=== PATIENT | male | born 2000 | race Hispanic/Latino ===

== ENCOUNTER 2019-11-02 03:25 | Emergency (ER) | payer OTHER, MEDICAID, SELFPAY ==
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
[2019-11-02 03:33] VITALS: BP 130/91; PULSE 124; RESP 20; TEMP 36.3; O2SAT 99
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
[2019-11-02] MEDS: SODIUM CHLORIDE 0.9% 1,000 ML 1000 ML IV (04:09)
[2019-11-02 04:34] LABS: Add Manual Diff / Slide Review NO; Basophils Absolute Auto 0 /uL (0-100); Basophils Percent Auto 0.4 % (0-2); Eosinophils Absolute Auto 100 /uL (0-450); Eosinophils Percent Auto 0.5 % (2-4); Hematocrit 43.8 % (41-53); Hemoglobin 15.2 g/dL (13.5-17.5); Lymphocytes Absolute Auto 3000 /uL (1100-4500); Mean Corpuscular HGB Conc 34.8 % (30-36); Mean Corpuscular Hemoglobin 30.4 PG (26-34); Mean Corpuscular Volume 87.4 fL (80-100); Monocytes Absolute Auto 700 /uL (0-900); Monocytes Percent Auto 6.7 % (3-14); Neutrophils Absolute Auto 6200 /uL (1500-7000); Neutrophils Percent Auto 62.4 % (50-75); Platelet Count 322 X10^3/uL (150-400); Red Blood Cell Count 5.01 X10^6/uL (4.5-5.9); Red Cell Distribution Width 13.2 % (11.6-14.8)
[2019-11-02 04:35] LABS: Alanine Aminotransferase 84 IU/L (<50); Albumin 4.9 g/dL (3.5-5.0); Albumin Globulin Ratio 1.4 (1.0-2.8); Alkaline Phosphatase 106 U/L (38-126); Aspartate Aminotransferase 50 IU/L (17-59); BUN Creatinine Ratio 16.7 (6-22); Bilirubin Total 0.4 mg/dL (0.2-1.3); Blood Urea Nitrogen 10 mg/dL (9-20); Calcium 9.4 mg/dL (8.4-10.2); Carbon Dioxide 21 mmol/L (22-32); Chloride 106 mmol/L (98-107); Estimated Glomerular Filt Rate > 60.0 mL/min (>60); Ethanol (ETOH) 165 mg/dL; Globulin 3.5 g/dL (1.7-4.1); Glucose 125 mg/dL (70-100); HEMOLYSIS 29 (0-50); Lipase 104 U/L (23-300); Potassium 3.9 mmol/L (3.4-5.1); Sodium 144 mmol/L (137-145); Total Protein 8.4 g/dL (6.3-8.2)
[2019-11-02 04:42] LABS: Creatine Kinase 207 U/L (55-170)
[2019-11-02 04:55] LABS: Troponin I < 0.012 ng/mL (0.01-0.034)
[2019-11-02 04:57] LABS: CKMB % Relative Index 0.6 % (1.5-5.0)
[2019-11-02 05:23] VITALS: BP 110/67; PULSE 100; RESP 18; O2SAT 97
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
== END 2019-11-02 05:31 | disposition home or self-care (01) ==
PROVIDERS: Emergency Provider Emergency Medicine; PCP Family Medicine
DX: S06.0X9A Concussion with loss of consciousness of unspecified duration, initial encounter (principal); F10.920 Alcohol use, unspecified with intoxication, uncomplicated; V49.40XA Driver injured in collision with unspecified motor vehicles in traffic accident, initial encounter
CPT/HCPCS: 36415; 70450; 71045; 72170; 80053; 80320; 82550; 82553; 83690; 84484; 85025; 93005; 96360; 99285

== ENCOUNTER 2020-09-27 00:29 | Inpatient (IN) | payer OTHER, MEDICAID, SELFPAY ==
[2020-09-27] VITALS (98 sets, daily range): BP systolic 64–162; BP diastolic 51–92; PULSE 83–131; RESP 0–37; TEMP 36–37.6; O2SAT 45–107; BMI 29.5
[2020-09-27] MEDS: ONDANSETRON 4 MG/2 ML INJ (00:45)
[2020-09-27] MEDS: KETAMINE 500 MG/5 ML INJ 85 MG IV (00:51)
[2020-09-27] MEDS: ROCURONIUM 100 MG/10 ML VIAL 85 MG IV (00:55)
--- NOTE | 2020-09-27 01:17 | DI.RAD.S_ITS ---
PROCEDURE: XR CHEST 1V INDICATIONS: post intubation TECHNIQUE: One view of the chest was acquired. COMPARISON: [facility], CR, XR CHEST 1V, 11/02/2019, 3:40. FINDINGS: Surgical changes and devices: Endotracheal tube in the midtrachea. Enteric tube coursing into the stomach. The side port is at the gastroesophageal junction. Recommend advancing 3 cm. Lungs and pleura: Low lung volumes. Silhouetting at the medial left hemidiaphragm. No pleural effusions or pneumothorax. Mediastinum: Mediastinal contours appear normal. Heart size is normal. Bones and chest wall: No suspicious bony lesions. Gastric gaseous distension. IMPRESSION: 1. Endotracheal tube in the midtrachea. 2. Enteric tube with the side port at the GE junction. Recommend advancing 3 cm for more optimal positioning. 3. Low lung volumes. Silhouetting at the medial left hemidiaphragm. This could be due to consolidation or atelectasis in the left lower lobe. 4. Gastric distension. This report is concordant with the overnight preliminary interpretation. Dictated by: Ha Patel M.D. on 09/27/2020 at 7:39 Approved by: Ha Patel M.D. on 09/27/2020 at 7:43
[2020-09-27] MEDS: fentaNYL 100 MCG/2 ML INJ ×2 (01:30→02:50)
[2020-09-27 01:37] LABS: UR Morphine/Opiate cutoff 300 Negative (Negative); Ur Creatinine Normal (Normal); Ur Specific Gravity Normal (Normal); Urine Amphetamines Negative (Negative); Urine Barbiturates Negative (Negative); Urine Benzodiazepines Negative (Negative); Urine Cocaine Negative (Negative); Urine MDMA Negative (Negative); Urine Methadone Negative (Negative); Urine Methamphetamines Negative (Negative); Urine Oxycodone Negative (Negative); Urine Phencyclidine Negative (Negative); Urine Tetrahydrocannabinol Negative (Negative); Urine Tricyclic Antidepressant Negative (Negative); Urine pH Normal (Normal)
--- NOTE | 2020-09-27 01:43 | ED_ITS ---
HPI - Overdose General Chief Complaint: Toxicology Problem Stated Complaint: ETOH Time Seen by Provider: 09/27/20 00:30 Source: EMS Mode of arrival: EMS Limitations: altered mental status History of Present Illness HPI Narrative: 20-year-old male nonsmoker with noncontributory medical history presents by EMS for evaluation of altered mental status presumably due to consumption of upwards of 2 fifths of whiskey which he consumed tonight. There is no report of other ingestions. EMS was called because he was becoming altered and he was violent and not directable, the decision was made to administer ketamine for safety of patient and paramedics. He was brought into [facility] and soon after his initial evaluation he became apneic and decision was made to secure his airway. There is no report of trauma and no obvious sign of trauma on his physical exam. Mother comes late into the visit and states he told her he planned to drink tonight and that he is terrified of street drugs. She states she found him in his room unresponsive just prior to calling EMS and she was unable to wake him. She states she doesn't know how long he was like that, but he was standing up by the time EMS arrived, but slurring his words like he was drunk. MD complaint: accidental overdose Treatments Prior to Arrival: IV fluids Related Data Home Medications Medication Instructions Recorded Confirmed No Known Home Medications 09/27/20 09/27/20 Allergies Allergy/AdvReac Type Severity Reaction Status Date / Time No Known Allergies Allergy Uncoded 12/27/17 12:51 Review of Systems Review of Systems ROS Unobtainable: Unobtainable due to mental status/LOC Patient History Medical History Alcohol abuse Surgical History (Updated 09/27/20 @ 03:38 by LIYAH Persaud) No significant past surgical history Social History household members: family Smoking Status: Never smoker Smoking Status: Current every day smoker alcohol intake frequency: 0-2 drinks per day Alcohol type: beer Substance Use Type: does not use Exam Narrative Exam Narrative: GENERAL: [20] year old patient appears stated age. Well- nourished, well-developed patient, in mild distress. GCS 3 (Ketamine on board). Guarding airway HEAD: Atraumatic. Normocephalic. EYES: Pupils equal round and reactive. Extraocular motions intact. No scleral icterus. No injection or drainage. ENT: Nose without bleeding, purulent drainage. Throat without erythema, tonsillar hypertrophy or exudate. Airway patent. NECK: Trachea midline. Non tender CARDIOVASCULAR: Tachycardic but regular rhythm without murmurs, gallops, or rubs. RESPIRATORY: Clear to auscultation. Breath sounds equal bilaterally. No wheezes, rales, or rhonchi. GASTROINTESTINAL: Abdomen soft, non-tender, nondistended. EXTREMITIES: No edema or joint tenderness. BACK: Nontender without deformity or crepitance. No flank tenderness. NEURO: Sedated SKIN: No rash or erythema of visible areas Initial Vital Signs Initial Vital Signs: Vital Signs Pulse Rate 120 H 09/27/20 00:32 Blood Pressure 162/75 H 09/27/20 00:32 Pulse Oximetry 74 L 09/27/20 00:32 Procedures Intubation Time out performed: Yes sedative: Ketamine Mg Given: 85 paralytic: Rocuronium Mg Given: 85 Laryngoscope: other (Glydescope) ET Tube Size: 8.5 ET Tube Uncuffed: No Tube Secured Depth (cm): 23 Tube Secured Location: teeth Tube Placement Confirmation: Visualized tube passing through cords, Equal breath sounds bilaterally, No breath sounds over epigastrium, Confirmation by capnometry and Chest Xray Patient Tolerated Procedure: Well Intubation Complications: none Course Orders Ordered: ED Orders 09/27/20 01:17 XR chest 1V Stat 09/27/20 01:25 Urinalysis and Microscopic Stat Urine Drug Screen, Rapid Stat 09/27/20 01:26 Complete Blood Count AUTO DIFF Stat Comprehensive Metabolic Panel Stat Ethanol (ETOH) Stat Hepatic (Liver) Panel Stat Lipase Stat Magnesium Stat 09/27/20 01:45 COVID19 Stat 09/27/20 01:50 Arterial Blood Gas Stat 09/27/20 02:22 Education, smoking cessation ONGOING 09/27/20 02:26 Consult to Discharge Planning Routine 09/27/20 02:27 Consult to Dietitian, Adult Routine 09/27/20 02:30 Arterial Blood Gas Daily 09/27/20 07:00 Basic Metabolic Panel Urgent Complete Blood Count AUTO DIFF Urgent Magnesium Routine Enoxaparin Sodium (Enoxaparin 40 Mg/0.4 Ml Syringe) 40 mg SUBCUT DAILY OFELIA Fentanyl (Fentanyl 100 Mcg/2 Ml Inj) 50 mcg IV Q1H PRN PRN Reason: Pain, Severe (7-10) Last Admin: 09/27/20 05:39 Dose: 50 mcg Documented by: HITESH Sodium Chloride (Normal Saline 0.9%) 1,000 mls @ 125 mls/hr IV CONT [facility] Last Admin: 09/27/20 03:19 Dose: 125 mls/hr Documented by: WALESKA Midazolam HCl 50 mg/ Dextrose 250 mls @ 8.71 mls/hr IV TITRATE [facility]; Protocol Last Titration: 09/27/20 05:30 Dose: 0.02 mg/kg/hr, 8 mls/hr Documented by: Titration: 09/27/20 04:30 Dose: 0.01 mg/kg/hr, 6 mls/hr Documented by: Admin: 09/27/20 03:19 Dose: 0.02 mg/kg/hr, 8.71 mls/hr Documented by: WALESKA Potassium Chloride 40 meq/ (Sodium Chloride) 520 mls @ 130 mls/hr IV NOW ONE Stop: 09/27/20 07:13 Last Admin: 09/27/20 03:45 Dose: 130 mls/hr Documented by: HITESH Cosigned by: WALESKA Folic Acid 1 mg/ Thiamine HCl 100 mg/ Multivitamins 10 ml/Sodium Chloride 1,121 mls @ 125 mls/hr IV NOW [facility] Last Admin: 09/27/20 04:41 Dose: 125 mls/hr Documented by: HITESH Naloxone HCl (Naloxone 0.4 Mg/Ml Vial) 0.2 mg IV Q2MIN PRN PRN Reason: Opiate Reversal Ondansetron HCl (Ondansetron 4 Mg/2 Ml Inj) 4 mg IV Q6HR [facility] Last Admin: 09/27/20 05:41 Dose: 4 mg Documented by: HITESH Discontinued Medications Sodium Chloride (Normal Saline 0.9%) 1,000 mls @ 150 mls/hr IV CONT [facility] Last Admin: 09/27/20 01:53 Dose: 150 mls/hr Documented by: SOL Magnesium Sulfate 0.01 gm/Folic Acid 1 mg/ Thiamine HCl 100 mg/ Multivitamins 10 ml/Sodium Chloride 1,011.22 mls @ 125 mls/hr IV NOW ONE Stop: 09/27/20 11:22 Last Admin: 09/27/20 04:49 Dose: Not Given Documented by: HITESH Influenza Virus Vaccine (Influenza Vaccine 0.5 Ml Syringe) 0.5 ml IM .ONCE ONE Stop: 09/27/20 03:37 Ketamine HCl (Ketamine 500 Mg/5 Ml Inj) 85 mg 1 mg/kg (85 mg) IV NOW ONE Stop: 09/27/20 01:17 Last Admin: 09/27/20 00:51 Dose: 85 mg Documented by: SOL Midazolam HCl (Midazolam 2 Mg/2 Ml Vial) 2 mg IV NOW ONE Stop: 09/27/20 03:01 Last Admin: 09/27/20 03:15 Dose: 2 mg Documented by: WALESKA Pantoprazole Sodium (Pantoprazole 40 Mg Vial) 40 mg IV NOW ONE Stop: 09/27/20 01:44 Last Admin: 09/27/20 01:46 Dose: 40 mg Documented by: SOL Rocuronium [place] (Rocuronium 100 Mg/10 Ml Vial) 85 mg IV NOW ONE Stop: 09/27/20 02:16 Last Admin: 09/27/20 00:55 Dose: 85 mg Documented by: SOL Reevaluation(s) Reevaluation #1: soon after initial exam he becomes unresponsive, apneic, and cyanotic. No improvement with repositioning airway/OPA. LMA placed while RSI kit obtained. He was doing well on LMA for about 20 minutes, but there was certainly no improvement and SpO2 began dropping into the 80s. Decision made to intubate Vital Signs Vital signs: Vital Signs - 8 hr 09/27/20 00:32 09/27/20 00:43 09/27/20 00:55 Pulse Rate 120 H 102 H 120 H Respiratory Rate 0 L Blood Pressure 162/75 H 162/75 H 143/76 H Pulse Oximetry 74 L 45 L 80 L 09/27/20 00:57 09/27/20 01:00 09/27/20 01:05 Pulse Rate 120 H 122 H 119 H Respiratory Rate 10 L 20 Blood Pressure 144/79 H 138/78 Pulse Oximetry 97 98 09/27/20 01:10 09/27/20 01:15 09/27/20 01:20 Pulse Rate 114 H 109 H 107 H Respiratory Rate 20 20 20 Blood Pressure 129/74 126/75 124/79 Pulse Oximetry 98 98 98 09/27/20 01:25 09/27/20 01:30 09/27/20 01:35 Pulse Rate 102 H 98 H 88 Respiratory Rate 20 20 20 Blood Pressure 125/81 124/81 117/75 Pulse Oximetry 99 98 97 09/27/20 01:40 09/27/20 01:45 09/27/20 01:50 Pulse Rate 90 92 H 94 H Respiratory Rate 20 20 20 Blood Pressure 117/64 117/69 121/74 Pulse Oximetry 90 L 99 100 09/27/20 01:55 09/27/20 02:00 09/27/20 02:05 Pulse Rate 92 H 92 H 93 H Respiratory Rate 20 20 20 Blood Pressure 121/78 117/80 113/79 Pulse Oximetry 100 98 98 09/27/20 02:10 09/27/20 02:15 09/27/20 02:20 Pulse Rate 93 H 97 H 99 H Respiratory Rate 20 20 20 Blood Pressure 115/75 118/76 122/81 Pulse Oximetry 99 99 99 MDM - Overdose Lab Data Result diagrams: 09/27/20 01:26 09/27/20 01:26 Labs: Lab Results 09/27/20 09/27/20 09/27/20 Range/Units 01:25 01:25 01:26 WBC 8.1 (4.5-11.0) X10^3/uL RBC 4.84 (4.5-5.9) X10^6/uL Hgb 14.4 (13.5-17.5) g/dL Hct 43.4 (41-53) % MCV 89.8 (80-100) fL MCH 29.8 (26-34) PG MCHC 33.2 (30-36) % RDW 13.4 (11.6-14.8) % Plt Count 223 (150-400) X10^3/uL Neut % (Auto) 54.7 (50-75) % Lymph % (Auto) 37.1 (25-40) % [place] % (Auto) 5.6 (3-14) % Eos % (Auto) 2.1 (2-4) % Baso % (Auto) 0.5 (0-2) % Neut # (Auto) 4400 (1778-5626) /uL Lymph # (Auto) 3000 (9139-1522) /uL [place] # (Auto) 500 (0-900) /uL Eos # (Auto) 200 (0-450) /uL Baso # (Auto) 0 (0-100) /uL ABG pH (7.35-7.45) ABG pCO2 (35-45) mmHg ABG pO2 (80-100) mmHg ABG HCO3 (22-26) mmol/L ABG Total CO2 (21-31) mmol/L ABG O2 Saturation (95-100) % ABG Base Excess (-2-2) mmol/L FiO2 Sodium (137-145) mmol/L Potassium (3.4-5.1) mmol/L Chloride (98-107) mmol/L Carbon Dioxide (22-32) mmol/L BUN (9-20) mg/dL Creatinine (0.66-1.25) mg/dL Estimated GFR (>60) mL/min BUN/Creatinine Ratio (6-22) Glucose (70-100) mg/dL Calcium (8.4-10.2) mg/dL Magnesium (1.6-2.3) mg/dL Total Bilirubin (0.2-1.3) mg/dL Conjugated Bilirubin (0.0-0.3) md/dL Unconjugated Bilirubin (0.0-1.1) mg/dL AST (17-59) IU/L ALT (<50) IU/L Alkaline Phosphatase (38-126) U/L Total Protein (6.3-8.2) g/dL Albumin (3.5-5.0) g/dL Globulin (1.7-4.1) g/dL Albumin/Globulin Ratio (1.0-2.8) Lipase (23-300) U/L Urine Color Yellow Urine Appearance Clear Urine pH 6.5 (4.5-8.0) Ur Specific Collins 1.010 (1.000-1.035) Urine Protein Negative (Negative) Urine Glucose (UA) Negative (Negative) g/dL Urine Ketones Negative (NEGATIVE) Urine Occult Blood Negative (Negative) Urine Nitrate Negative (Negative) Urine Bilirubin Negative (NEGATIVE) Urine Urobilinogen 0.2 (0.2) E.U./dL Ur Leukocyte Esterase Negative (NEGATIVE) Urine RBC None seen (0-5/HPF) Urine WBC None seen (0-5/HPF) Urine Bacteria None seen (None) Ur Culture Indicated? Cult not indicated Micro UA Comment Microscopic normal U Opiates 300ng/mL cut Negative (Negative) Ur Oxycodone Screen Negative (Negative) Urine Methadone Screen Negative (Negative) Ur Barbiturates Screen Negative (Negative) U Tricyclic Antidepress Negative (Negative) Ur Phencyclidine Scrn Negative (Negative) Ur Amphetamines Screen Negative (Negative) U Methamphetamines Scrn Negative (Negative) Ur MDMA Scrn (Ecstasy) Negative (Negative) U Benzodiazepines Scrn Negative (Negative) Urine Cocaine Screen Negative (Negative) U Marijuana (THC) Screen Negative (Negative) Ethyl Alcohol ( - 10) mg/dL SARS-CoV-2 (PCR) (Negative) 09/27/20 09/27/20 09/27/20 Range/Units 01:26 01:45 01:50 WBC (4.5-11.0) X10^3/uL RBC (4.5-5.9) X10^6/uL Hgb (13.5-17.5) g/dL Hct (41-53) % MCV (80-100) fL MCH (26-34) PG MCHC (30-36) % RDW (11.6-14.8) % Plt Count (150-400) X10^3/uL Neut % (Auto) (50-75) % Lymph % (Auto) (25-40) % [place] % (Auto) (3-14) % Eos % (Auto) (2-4) % Baso % (Auto) (0-2) % Neut # (Auto) (6113-5910) /uL Lymph # (Auto) (7106-0302) /uL [place] # (Auto) (0-900) /uL Eos # (Auto) (0-450) /uL Baso # (Auto) (0-100) /uL ABG pH 7.38 (7.35-7.45) ABG pCO2 40.7 (35-45) mmHg ABG pO2 294 H* (80-100) mmHg ABG HCO3 24 (22-26) mmol/L ABG Total CO2 25 (21-31) mmol/L ABG O2 Saturation 100 (95-100) % ABG Base Excess -1.0 (-2-2) mmol/L FiO2 100 Sodium 143 (137-145) mmol/L Potassium 3.1 L (3.4-5.1) mmol/L Chloride 107 (98-107) mmol/L Carbon Dioxide 24 (22-32) mmol/L BUN 12 (9-20) mg/dL Creatinine 0.60 L (0.66-1.25) mg/dL Estimated GFR > 60.0 (>60) mL/min BUN/Creatinine Ratio 20.0 (6-22) Glucose 123 H (70-100) mg/dL Calcium 8.1 L (8.4-10.2) mg/dL Magnesium 2.1 (1.6-2.3) mg/dL Total Bilirubin 0.2 (0.2-1.3) mg/dL Conjugated Bilirubin 0.0 (0.0-0.3) md/dL Unconjugated Bilirubin 0.2 (0.0-1.1) mg/dL AST 42 (17-59) IU/L ALT 49 (<50) IU/L Alkaline Phosphatase 58 (38-126) U/L Total Protein 6.7 (6.3-8.2) g/dL Albumin 4.1 (3.5-5.0) g/dL Globulin 2.6 (1.7-4.1) g/dL Albumin/Globulin Ratio 1.6 (1.0-2.8) Lipase 83 (23-300) U/L Urine Color Urine Appearance Urine pH (4.5-8.0) Ur Specific [place] (1.000-1.035) Urine Protein (Negative) Urine Glucose (UA) (Negative) g/dL Urine Ketones (NEGATIVE) Urine Occult Blood (Negative) Urine Nitrate (Negative) Urine Bilirubin (NEGATIVE) Urine Urobilinogen (0.2) E.U./dL Ur Leukocyte Esterase (NEGATIVE) Urine RBC (0-5/HPF) Urine WBC (0-5/HPF) Urine Bacteria (None) Ur Culture Indicated? Micro UA Comment U Opiates 300ng/mL cut (Negative) Ur Oxycodone Screen (Negative) Urine Methadone Screen (Negative) Ur Barbiturates Screen (Negative) U Tricyclic Antidepress (Negative) Ur Phencyclidine Scrn (Negative) Ur Amphetamines Screen (Negative) U Methamphetamines Scrn (Negative) Ur MDMA Scrn (Ecstasy) (Negative) U Benzodiazepines Scrn (Negative) Urine Cocaine Screen (Negative) U Marijuana (THC) Screen (Negative) Ethyl Alcohol 292 H ( - 10) mg/dL SARS-CoV-2 (PCR) Negative (Negative) Discharge Plan Departure Patient Disposition: Admitted As Inpatient Clinical Impression: Polysubstance abuse Alcoholic intoxication Qualifiers: Complication of substance-induced condition: with unspecified complication Qualified Code(s): F10.929 - Alcohol use, unspecified with intoxication, unspecified Respiratory failure Qualifiers: Chronicity: acute Respiratory failure complication: hypoxia Qualified Code(s): J96.01 - Acute respiratory failure with hypoxia Admit Date/Time: 09/27/20 02:24 Admit Provider: Jose Garrett
[2020-09-27 01:44] LABS: Add Manual Diff / Slide Review NO; Basophils Absolute Auto 0 /uL (0-100); Basophils Percent Auto 0.5 % (0-2); Eosinophils Absolute Auto 200 /uL (0-450); Eosinophils Percent Auto 2.1 % (2-4); Hematocrit 43.4 % (41-53); Hemoglobin 14.4 g/dL (13.5-17.5); Lymphocytes Absolute Auto 3000 /uL (1100-4500); Lymphocytes Percent Auto 37.1 % (25-40); Mean Corpuscular HGB Conc 33.2 % (30-36); Mean Corpuscular Hemoglobin 29.8 PG (26-34); Mean Corpuscular Volume 89.8 fL (80-100); Monocytes Absolute Auto 500 /uL (0-900); Monocytes Percent Auto 5.6 % (3-14); Neutrophils Absolute Auto 4400 /uL (1500-7000); Neutrophils Percent Auto 54.7 % (50-75); Platelet Count 223 X10^3/uL (150-400); Red Blood Cell Count 4.84 X10^6/uL (4.5-5.9); Red Cell Distribution Width 13.4 % (11.6-14.8); White Blood Cell Count 8.1 X10^3/uL (4.5-11.0)
[2020-09-27 01:45] LABS: Appearance Urine UA CLEAR; Bacteria Urine None Seen; Bilirubin Urine UA NEGATIVE (NEGATIVE); Color Urine UA YELLOW; Glucose Urine UA NEGATIVE (Negative); Ketones Urine UA NEGATIVE (NEGATIVE); Leukocyte Esterase Urine UA NEGATIVE (NEGATIVE); Nitrite Urine UA NEGATIVE (Negative); Occult Blood Urine UA NEGATIVE (Negative); Protein Urine UA NEGATIVE (Negative); RBC Urine None Seen (0-5/HPF); Urobilinogen Urine UA 0.2 E.U./dL (0.2); WBC Urine None Seen (0-5/HPF); pH Urine UA 6.5 (4.5-8.0)
[2020-09-27] MEDS: PANTOPRAZOLE 40 MG VIAL IV ×2 (01:46→10:16)
[2020-09-27 01:49] LABS: Alanine Aminotransferase 49 IU/L (<50); Albumin 4.1 g/dL (3.5-5.0); Albumin Globulin Ratio 1.6 (1.0-2.8); Alkaline Phosphatase 58 U/L (38-126); Aspartate Aminotransferase 42 IU/L (17-59); Bilirubin Total 0.2 mg/dL (0.2-1.3); Bilirubin Unconjugated 0.2 mg/dL (0.0-1.1); Blood Urea Nitrogen 12 mg/dL (9-20); Calcium 8.1 mg/dL (8.4-10.2); Carbon Dioxide 24 mmol/L (22-32); Chloride 107 mmol/L (98-107); Estimated Glomerular Filt Rate > 60.0 mL/min (>60); Ethanol (ETOH) 292 mg/dL; Globulin 2.6 g/dL (1.7-4.1); Glucose 123 mg/dL (70-100); HEMOLYSIS < 15 (0-50); Lipase 83 U/L (23-300); Magnesium 2.1 mg/dL (1.6-2.3); Potassium 3.1 mmol/L (3.4-5.1); Sodium 143 mmol/L (137-145); Total Protein 6.7 g/dL (6.3-8.2)
[2020-09-27] MEDS: SODIUM CHLORIDE 0.9% 1,000 ML 150 ML IV (01:53)
[2020-09-27 01:54] LABS: Culture Indicated Urine Cult Not Indicated; Urine Comments Microscopic Normal
--- NOTE | 2020-09-27 01:58 | PC.NURSE ---
Pt brought in by medics. Pt on their gurney was pink in color, breathing with steady breathes, Spo2 per medics was at 98% on RA. Transferred pt to ED [facility]. While connecting him to the monitor, Spo2 at 77% and dropping. Placed on non rebreather at 15L. Spo2 continued to drop and pt turning blue and not breathing. Provider called into room and started bagging with a BVM. OPA in place. RT called and present at bedside. Suction at bedside and suctioned airway. while preparing to intubate provider placed an LMA and placed on vent. Spo2 increased to 93% on 100% fio2. Oxygen began to drop again on LMA. Provider intubated with 8.5 tube, 23cm at teeth. breath sounds and equal chest rise were observed and heard. Tube secured. Maintaining Oxygen saturations at 50% fio2 at 99%.
[2020-09-27 02:03] LABS: COVID19 -Nasal RAPID Negative (Negative)
[2020-09-27 02:04] LABS: HCO3 ABG 24 mmol/L (22-26); PCO2 ABG 40.7 mmHg (35-45); PO2 ABG 294 mmHg (80-100); pH ABG 7.38 (7.35-7.45)
[2020-09-27 02:05] LABS: Fractionated Inspired Oxygen 100; Oxygen Saturation ABG 100 % (95-100); TCO2 ABG 25 mmol/L (21-31)
[2020-09-27] MEDS: propofoL 200 MG/20 ML VIAL IV (02:25)
[2020-09-27] MEDS: MIDAZOLAM 2 MG/2 ML VIAL IV ×2 (03:15→07:13)
[2020-09-27] MEDS: SODIUM CHLORIDE 0.9% 1,000 ML 125 ML IV ×3 (03:19→22:39)
[2020-09-27] MEDS: MIDAZOLAM 50 MG in DEXTROSE 5% IN WATER 240 ML 8.71 ML IV (03:19)
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
[2020-09-27] MEDS: POTASSIUM CHLORIDE 40 MEQ in SODIUM CHLORIDE 0.9% 500 ML 130 ML IV (03:45)
[2020-09-27] MEDS: MULTIVITAMIN IV (04:41)
[2020-09-27] MEDS: THIAMINE IV (04:41)
[2020-09-27] MEDS: FOLIC ACID IV (04:41)
[2020-09-27] MEDS: SODIUM CHLORIDE IV (04:41)
[2020-09-27 04:46] LABS: Fractionated Inspired Oxygen 30; HCO3 ABG 21 mmol/L (22-26); Oxygen Saturation ABG 99 % (95-100); PCO2 ABG 38.1 mmHg (35-45); PO2 ABG 123 mmHg (80-100); TCO2 ABG 23 mmol/L (21-31); pH ABG 7.36 (7.35-7.45)
--- NOTE | 2020-09-27 04:57 | PC.ADMIT ---
[address] [facility] [address] Admission Note:Pt arrived to unit via gurney without issues. Mother at bedside and providing hx for patient. Pt sedated and intubated. Administered versed push while waiting for gtt to arrive per Gerry PELLETIER order. Pitts cath placed per VO Gerry PELLETIER. Pt sedated but responsive to painful touch. Versed gtt started as ordered, checked with SANGEETA Gerardo. Pt showing no signs of pain. RT at bedside. Vent settings at 5 peep. 16 RR. 30 FI02. TV 470 The patient,Scott Burkett,20 y/o, was given written information regarding hospital policies, unit procedures and contact persons. Patient's smoking status: Never smoker. Vital Signs - 8 hr 09/27/20 00:32 09/27/20 00:43 09/27/20 00:55 Temperature Pulse Rate 120 H 102 H 120 H Respiratory Rate 0 L Blood Pressure 162/75 H 162/75 H 143/76 H Pulse Oximetry 74 L 45 L 80 L 09/27/20 00:57 09/27/20 01:00 09/27/20 01:05 Temperature Pulse Rate 120 H 122 H 119 H Respiratory Rate 10 L 20 Blood Pressure 144/79 H 138/78 Pulse Oximetry 97 98 09/27/20 01:10 09/27/20 01:15 09/27/20 01:20 Temperature Pulse Rate 114 H 109 H 107 H Respiratory Rate 20 20 20 Blood Pressure 129/74 126/75 124/79 Pulse Oximetry 98 98 98 09/27/20 01:25 09/27/20 01:30 09/27/20 01:35 Temperature Pulse Rate 102 H 98 H 88 Respiratory Rate 20 20 20 Blood Pressure 125/81 124/81 117/75 Pulse Oximetry 99 98 97 09/27/20 01:40 09/27/20 01:45 09/27/20 01:50 Temperature Pulse Rate 90 92 H 94 H Respiratory Rate 20 20 20 Blood Pressure 117/64 117/69 121/74 Pulse Oximetry 90 L 99 100 09/27/20 01:55 09/27/20 02:00 09/27/20 02:05 Temperature Pulse Rate 92 H 92 H 93 H Respiratory Rate 20 20 20 Blood Pressure 121/78 117/80 113/79 Pulse Oximetry 100 98 98 09/27/20 02:10 09/27/20 02:15 09/27/20 02:20 Temperature Pulse Rate 93 H 97 H 99 H Respiratory Rate 20 20 20 Blood Pressure 115/75 118/76 122/81 Pulse Oximetry 99 99 99 09/27/20 02:25 09/27/20 02:30 09/27/20 02:35 Temperature 96.8 F L Pulse Rate 97 H 96 H 95 H Respiratory Rate 20 20 20 Blood Pressure 122/84 115/72 115/69 Pulse Oximetry 99 98 99 09/27/20 02:40 09/27/20 02:45 09/27/20 02:50 Temperature Pulse Rate 95 H 83 85 Respiratory Rate 20 20 20 Blood Pressure 125/87 112/74 116/76 Pulse Oximetry 100 99 100 09/27/20 02:55 09/27/20 03:00 09/27/20 03:22 Temperature Pulse Rate 99 H 92 H 98 H Respiratory Rate 17 16 Blood Pressure 123/86 124/88 132/86 Pulse Oximetry 100 99 09/27/20 03:53 09/27/20 04:00 09/27/20 04:24 Temperature Pulse Rate 93 H 96 H 93 H Respiratory Rate 16 16 16 Blood Pressure 114/75 114/75 Pulse Oximetry 100 100 100 09/27/20 04:30 09/27/20 04:47 Temperature 97.4 F L Pulse Rate 100 H Respiratory Rate 16 Blood Pressure 115/77 Pulse Oximetry 100
[2020-09-27] MEDS: fentaNYL 100 MCG/2 ML INJ 50 MCG IV ×5 (05:39→13:39)
[2020-09-27] MEDS: ONDANSETRON 4 MG/2 ML INJ IV ×4 (05:41→23:49)
--- NOTE | 2020-09-27 05:50 | PC.NURSE ---
Addendum entered by Marcela Riley R.N. 09/27/20 07:21: Pt continues to try to pull at lines and fight vent. 2mg versed ordered by Gerry PELLETIER. Pt now resting. [facility] Addendum entered by Marcela Riley R.N. 09/27/20 06:57: Gtt decreased to 6ml/hr due to patient non-responsive to painful touch. 0645 - Pt awake again trying to pull at vent and lines. Gtt increased again to 8ml/hr and another dose of fentanyl given. HR upto 130-140s. Pt now resting but arousable. Original Note: Pt awake fighting vent and trying pull at lines. Versed gtt increased to 8ml/hr. Pt continues to fight vent. Fentanyl PRN given as ordered. Gerry PELLETIER aware. Pt now resting comfortably in bed, awakens to stimuli. [facility]
--- NOTE | 2020-09-27 08:00 | DI.RAD.S_ITS ---
PROCEDURE: XR CHEST 1V INDICATIONS: Intubation TECHNIQUE: One view of the chest was acquired. COMPARISON: [facility], , XR CHEST 1V, 09/27/2020, 1:31. [facility], CR, XR CHEST 1V, 11/02/2019, 3:40. FINDINGS: Suboptimal examination due to x-ray penetration. Surgical changes and devices: Endotracheal tube in the midtrachea. Enteric tube is not well seen. Lungs and pleura: No obvious new airspace opacity. Low lung volumes. No obvious pleural effusions or pneumothorax. Mediastinum: Mediastinal contours appear normal. Heart size appears unchanged. Bones and chest wall: No suspicious bony lesions. Overlying soft tissues appear unremarkable. IMPRESSION: Suboptimal evaluation due to x-ray penetration. Endotracheal tube appears to be within the midtrachea. Enteric tube is not well seen. Consider repeat examination when clinically feasible. Dictated by: Ha Patel M.D. on 09/27/2020 at 13:24 Approved by: Ha Patel M.D. on 09/27/2020 at 13:26
[2020-09-27 08:35] LABS: Add Manual Diff / Slide Review NO; Basophils Absolute Auto 0 /uL (0-100); Basophils Percent Auto 0.2 % (0-2); Eosinophils Absolute Auto 0 /uL (0-450); Eosinophils Percent Auto 0.1 % (2-4); Hematocrit 43.9 % (41-53); Hemoglobin 14.8 g/dL (13.5-17.5); Lymphocytes Absolute Auto 1900 /uL (1100-4500); Mean Corpuscular HGB Conc 33.7 % (30-36); Mean Corpuscular Hemoglobin 30.1 PG (26-34); Mean Corpuscular Volume 89.4 fL (80-100); Monocytes Absolute Auto 500 /uL (0-900); Monocytes Percent Auto 3.4 % (3-14); Neutrophils Absolute Auto 11900 /uL (1500-7000); Neutrophils Percent Auto 83.3 % (50-75); Platelet Count 223 X10^3/uL (150-400); Red Blood Cell Count 4.91 X10^6/uL (4.5-5.9); Red Cell Distribution Width 13.3 % (11.6-14.8); White Blood Cell Count 14.3 X10^3/uL (4.5-11.0)
[2020-09-27 08:47] LABS: BUN Creatinine Ratio 15.9 (6-22); Blood Urea Nitrogen 10 mg/dL (9-20); Calcium 8.2 mg/dL (8.4-10.2); Carbon Dioxide 25 mmol/L (22-32); Chloride 108 mmol/L (98-107); Estimated Glomerular Filt Rate > 60.0 mL/min (>60); Glucose 125 mg/dL (70-100); HEMOLYSIS < 15 (0-50); Potassium 4.1 mmol/L (3.4-5.1); Sodium 141 mmol/L (137-145)
[2020-09-27] MEDS: ENOXAPARIN 40 MG/0.4 ML SYRINGE SUBCUT (10:16)
--- NOTE | 2020-09-27 13:30 | CM.DANOTE ---
DCP brief assessment: EMR reviewed: Patient is a 20 yr old male who was brought into the ED for altered mental status and Alcohol OD. Patient became very apneic in ED and was placed on vent. patients PCP is Dr. Lazcano. patient not able to meet with CM at this time due to being on a vent and sedated. CM spoke with Dr. Nicole today during AM rounds and he stated patient will attempt to be weaned off of vent tomorrow if less agitated and VS are more stable. According to Patients mother patient drinks daily and usually to excess. Unknown how much patient drank last night but was found unresponsive by his mother who called EMS. When EMS arrived patient was slurring his words, agitated and becoming violent. Patient will need a full assessment when able to participate and a BUTCHER SUPERVISOR consult at that time. I: [place] and Medicaid Plan: undetermined at this time. patient is on Vent and unable to assist with DC plan. BUTCHER SUPERVISOR will follow up with patient when patient is able to participate in assessment. May Baptiste RN Discharge Planning/Care Management Discharge Assessment Start: 09/27/20 12:57 Freq: Status: Active Protocol: Document 09/27/20 12:58 HS (Rec: 09/27/20 13:30 HS [id number]) Discharge Planning Assessment Assigned Power Plant Operator May Baptiste RN DPOA/Assigned Designee Name Mey Burkett (mother) Contact Information [phone] Advance Directives? No History Provided By Parents,Medical Record Has Patient been admitted in last 30 No days? Prior Living Arrangements House Household Members family Comment patient lives in his mothers house Type of transporation used prior to Drives own vehicle admit Independent with ADL's Yes Is patient alert and oriented? No: Patient currently on VENT Caregiver for Another No Barriers to Discharge Yes Comment Paitent currently On VENT unable to determine D/C needs until off of Vent and more awake Whiteboard Updated in Patient Room with Yes name and ext. # of Power Plant Operator Review Status In Process Next Review Type Continued Stay Review
--- NOTE | 2020-09-27 13:46 | PC.NURSE ---
Addendum entered by Madiha Neri R.N. 09/27/20 15:17: Started Fentanyl gtt and monitoring BP with decreased Versed. Report to Morelia RUTHERFORD Original Note: Am shift Pt is lightly sedated. Vent settings 25% Fi02 TV 475 Peep 5 Rate 16. Able to follow commands, but patient remains impulsive, with attempts at removing ETT. Soft wrist restraints in place. CMS + ROM assessed and KENO ATTENDANT brisk. PIV x2. Mother at bedside and updated with POC changes throughout shift. CXR obtained @ 1400 portable, after Pt notably diaphoretic and T max 99.6. Concern for aspiration while in ED, after emesis. Pt needing versed titrated up frequently this shift, currently infusing at 0.038mg/kg/hr. 15mls/hr and Fentanyl gtt orders obtained, as IVP working but not lasting long. Pt reports pain to throat while awake. Paper and pen at bedside for communication. Agitation noted with in ability to extubate this shift. Get it out written to paper. Reassured Pt of POC and safety measures to follow. Requiring 1:1 Rn assist for much of AM.
[2020-09-27] MEDS: fentaNYL 1,000 MCG in DEXTROSE 5% IN WATER 230 ML 14.525 ML IV (14:57)
[2020-09-27] MEDS: LORazepam 2 MG/ML INJ IV (16:26)
--- NOTE | 2020-09-27 17:00 | DI.RAD.S_ITS ---
PROCEDURE: XR CHEST FOR PICC 1V INDICATIONS: PICC line placement TECHNIQUE: One view of the chest was acquired. COMPARISON: [facility], CR, XR CHEST 1V, 09/27/2020, 13:37. [facility], CR, XR CHEST 1V, 09/27/2020, 1:31. FINDINGS: Patient is not upright. Surgical changes and devices: Endotracheal tube in the midtrachea. Enteric tube coursing into the stomach. The side port is near the gastroesophageal junction. This could be advanced at least 3 cm for more optimal positioning. Left-sided PICC with the catheter tip at the lower 3rd of the SVC in satisfactory position. Lungs and pleura: Lungs appear clear. No pleural effusions or pneumothorax. Mediastinum: Mediastinal contours appear normal. Heart size is normal. Bones and chest wall: No suspicious bony lesions. Overlying soft tissues appear unremarkable. IMPRESSION: 1. Left-sided PICC with the tip at the lower 3rd of the SVC in satisfactory position. 2. Enteric tube in the proximal stomach. Consider advancing 3 cm for more optimal positioning. 3. Endotracheal tube in the midtrachea. 4. No airspace opacity identified. Dictated by: Ha Patel M.D. on 09/27/2020 at 17:16 Approved by: Ha Patel M.D. on 09/27/2020 at 17:17
[2020-09-27] MEDS: propofoL 200 MG/20 ML VIAL 85 MG IV (18:29)
[2020-09-27] MEDS: propofoL 1,000 MG/100 ML VIAL 2.49 MG IV (18:30)
--- NOTE | 2020-09-27 19:46 | P.PN_ITS ---
Subjective Subjective Date Patient Seen: 09/27/20 Time Patient Seen: 19:46 Interval history: Critical care update note: Tony Burkett is a 20-year-old male admitted overnight for acute alcohol intoxication. His alcohol level on admission was 292. He has been drinking for a few years. He was initially intubated in the emergency room. He remained intubated this morning. Attempted a sedation trial, and the patient was extremely combative, tachycardic, and had increasing secretions in his ET tube throughout the day. I suspect that he is most likely developing a component of alcohol withdrawal at this time. he was initially on sedation with Versed, added fentanyl but the patient remained predominantly awake. Decision was made to keep the patient intubated given his persistent tachycardia, presumed alcohol withdrawal, and possible aspiration. Ultimately Versed was changed to propofol, with continued fentanyl. This has improved his sedation somewhat but will continue to monitor. PICC line was placed given mild hypotension As he is requiring a lot of medication to keep him sedated for possible pressure support. I spent 35 minutes providing critical care management this patient over the course of today. This excludes time spent in performing separately billed procedures. Exam Vital Signs (past 8 hours): - 09/27/20 12:00 09/27/20 12:30 09/27/20 13:00 Temperature 98.8 F 99.3 F Pulse Rate 113 H 108 H 109 H Respiratory Rate 27 H 16 12 Blood Pressure 107/56 L 96/53 L 94/55 L Pulse Oximetry 91 91 91 09/27/20 13:20 09/27/20 13:30 09/27/20 14:00 Temperature 99.4 F Pulse Rate 117 H 110 H 104 H Respiratory Rate 18 16 16 Blood Pressure 94/55 L 93/51 L 96/52 L Pulse Oximetry 95 92 92 09/27/20 14:30 09/27/20 15:00 09/27/20 15:30 Temperature 98.6 F Pulse Rate 111 H 113 H 114 H Respiratory Rate 16 13 6 L Blood Pressure 98/57 L 105/61 98/56 L Pulse Oximetry 93 97 96 09/27/20 16:00 09/27/20 16:30 09/27/20 17:00 Temperature 97.9 F 98.1 F Pulse Rate 109 H 109 H 108 H Respiratory Rate 0 L 5 L 17 Blood Pressure 104/58 L 103/52 L Pulse Oximetry 92 92 91 09/27/20 17:30 09/27/20 17:31 09/27/20 17:37 Temperature Pulse Rate 113 H 109 H 108 H Respiratory Rate 16 16 16 Blood Pressure 117/59 L 112/58 L Pulse Oximetry 95 93 91 09/27/20 18:00 09/27/20 18:30 09/27/20 18:39 Temperature 99.7 F H Pulse Rate 109 H 109 H 118 H Respiratory Rate 16 16 16 Blood Pressure 107/63 101/56 L Pulse Oximetry 93 91 95 09/27/20 18:40 09/27/20 18:50 09/27/20 19:00 Temperature 98.6 F Pulse Rate 113 H 109 H 109 H Respiratory Rate 16 16 16 Blood Pressure 95/54 L 94/55 L 97/56 L Pulse Oximetry 93 91 91 09/27/20 19:10 09/27/20 19:20 09/27/20 19:30 Temperature Pulse Rate 106 H 111 H 112 H Respiratory Rate 16 16 16 Blood Pressure 100/56 L 120/74 109/62 Pulse Oximetry 92 98 93 Fraction of Inspired Oxygen 0.25 Oxygen Delivery Method Mechanical Ventilation Oxygen Flow Rate 30 Narrative Exam Narrative: GENERAL APPEARANCE: well developed, obese young male, intubated on ventilatory support. When alert reaching to pull out the tube HEENT: Nontraumatic, PERRLA sluggish, dysconjugate gaze, conjunctiva clear, sclera is anicteric, 8.5 ET tube secured at 23 cm at the teeth, mucous membranes are moist and pink NECK/THYROID: neck supple, no muscular spasms, no step-offs, no JVD, no thyromegaly, trachea midline. LYMPH NODES: no cervical or supraclavicular lymphadenopathy. SKIN: [employer], warm and dry, no visible lesions. HEART: Regular rhythm, tachycardia, S1-S2, no murmur, no rubs or gallops, brisk capillary refill, no edema LUNGS: Ventilator supported respirations, Vt 450, RR 20, Fio2 40%, breath sounds present bilaterally with central coarseness clear with suctioning, no crackles or wheezing, no cough present. CHEST: Symmetrical movement. ABDOMEN: Soft, no distention, dull to percussion, no organomegaly, active bowel tones. EXTREMITIES: no deformities or joint effusions. NEUROLOGIC: On significant sedation patient is still alert, follows commands, moves all extremities equally, attempting to remove ET tube, and frequently agitated. Objective Labs Result Diagrams: 09/27/20 08:30 09/27/20 08:30 Labs: Laboratory Results - last 24 hr 09/27/20 09/27/20 09/27/20 01:25 01:25 01:26 WBC 8.1 RBC 4.84 Hgb 14.4 Hct 43.4 MCV 89.8 MCH 29.8 MCHC 33.2 RDW 13.4 Plt Count 223 Neut % (Auto) 54.7 Lymph % (Auto) 37.1 [place] % (Auto) 5.6 Eos % (Auto) 2.1 Baso % (Auto) 0.5 Neut # (Auto) 4400 Lymph # (Auto) 3000 [place] # (Auto) 500 Eos # (Auto) 200 Baso # (Auto) 0 ABG pH ABG pCO2 ABG pO2 ABG HCO3 ABG Total CO2 ABG O2 Saturation ABG Base Excess FiO2 Sodium Potassium Chloride Carbon Dioxide BUN Creatinine Estimated GFR BUN/Creatinine Ratio Glucose Calcium Magnesium Total Bilirubin Conjugated Bilirubin Unconjugated Bilirubin AST ALT Alkaline Phosphatase Total Protein Albumin Globulin Albumin/Globulin Ratio Lipase Urine Color Yellow Urine Appearance Clear Urine pH 6.5 Ur Specific [place] 1.010 Urine Protein Negative Urine Glucose (UA) Negative Urine Ketones Negative Urine Occult Blood Negative Urine Nitrate Negative Urine Bilirubin Negative Urine Urobilinogen 0.2 Ur Leukocyte Esterase Negative Urine RBC None seen Urine WBC None seen Urine Bacteria None seen Ur Culture Indicated? Cult not indicated Micro UA Comment Microscopic normal Nasal Screen MRSA (PCR) U Opiates 300ng/mL cut Negative Ur Oxycodone Screen Negative Urine Methadone Screen Negative Ur Barbiturates Screen Negative U Tricyclic Antidepress Negative Ur Phencyclidine Scrn Negative Ur Amphetamines Screen Negative U Methamphetamines Scrn Negative Ur MDMA Scrn (Ecstasy) Negative U Benzodiazepines Scrn Negative Urine Cocaine Screen Negative U Marijuana (THC) Screen Negative Ethyl Alcohol SARS-CoV-2 (PCR) 09/27/20 09/27/20 09/27/20 01:26 01:45 01:50 WBC RBC Hgb Hct MCV MCH MCHC RDW Plt Count Neut % (Auto) Lymph % (Auto) [place] % (Auto) Eos % (Auto) Baso % (Auto) Neut # (Auto) Lymph # (Auto) [place] # (Auto) Eos # (Auto) Baso # (Auto) ABG pH 7.38 ABG pCO2 40.7 ABG pO2 294 H* ABG HCO3 24 ABG Total CO2 25 ABG O2 Saturation 100 ABG Base Excess -1.0 FiO2 100 Sodium 143 Potassium 3.1 L Chloride 107 Carbon Dioxide 24 BUN 12 Creatinine 0.60 L Estimated GFR > 60.0 BUN/Creatinine Ratio 20.0 Glucose 123 H Calcium 8.1 L Magnesium 2.1 Total Bilirubin 0.2 Conjugated Bilirubin 0.0 Unconjugated Bilirubin 0.2 AST 42 ALT 49 Alkaline Phosphatase 58 Total Protein 6.7 Albumin 4.1 Globulin 2.6 Albumin/Globulin Ratio 1.6 Lipase 83 Urine Color Urine Appearance Urine pH Ur Specific [place] Urine Protein Urine Glucose (UA) Urine Ketones Urine Occult Blood Urine Nitrate Urine Bilirubin Urine Urobilinogen Ur Leukocyte Esterase Urine RBC Urine WBC Urine Bacteria Ur Culture Indicated? Micro UA Comment Nasal Screen MRSA (PCR) U Opiates 300ng/mL cut Ur Oxycodone Screen Urine Methadone Screen Ur Barbiturates Screen U Tricyclic Antidepress Ur Phencyclidine Scrn Ur Amphetamines Screen U Methamphetamines Scrn Ur MDMA Scrn (Ecstasy) U Benzodiazepines Scrn Urine Cocaine Screen U Marijuana (THC) Screen Ethyl Alcohol 292 H SARS-CoV-2 (PCR) Negative 09/27/20 09/27/20 09/27/20 04:00 04:08 08:30 WBC RBC Hgb Hct MCV MCH MCHC RDW Plt Count Neut % (Auto) Lymph % (Auto) [place] % (Auto) Eos % (Auto) Baso % (Auto) Neut # (Auto) Lymph # (Auto) [place] # (Auto) Eos # (Auto) Baso # (Auto) ABG pH 7.36 ABG pCO2 38.1 ABG pO2 123 H ABG HCO3 21 L ABG Total CO2 23 ABG O2 Saturation 99 ABG Base Excess -4.0 L FiO2 30 Sodium Potassium Chloride Carbon Dioxide BUN Creatinine Estimated GFR BUN/Creatinine Ratio Glucose Calcium Magnesium 2.0 Total Bilirubin Conjugated Bilirubin Unconjugated Bilirubin AST ALT Alkaline Phosphatase Total Protein Albumin Globulin Albumin/Globulin Ratio Lipase Urine Color Urine Appearance Urine pH Ur Specific [place] Urine Protein Urine Glucose (UA) Urine Ketones Urine Occult Blood Urine Nitrate Urine Bilirubin Urine Urobilinogen Ur Leukocyte Esterase Urine RBC Urine WBC Urine Bacteria Ur Culture Indicated? Micro UA Comment Nasal Screen MRSA (PCR) Negative for mrsa U Opiates 300ng/mL cut Ur Oxycodone Screen Urine Methadone Screen Ur Barbiturates Screen U Tricyclic Antidepress Ur Phencyclidine Scrn Ur Amphetamines Screen U Methamphetamines Scrn Ur MDMA Scrn (Ecstasy) U Benzodiazepines Scrn Urine Cocaine Screen U Marijuana (THC) Screen Ethyl Alcohol SARS-CoV-2 (PCR) 09/27/20 09/27/20 08:30 08:30 WBC 14.3 H D RBC 4.91 Hgb 14.8 Hct 43.9 MCV 89.4 MCH 30.1 MCHC 33.7 RDW 13.3 Plt Count 223 Neut % (Auto) 83.3 H D Lymph % (Auto) 13.0 L D [place] % (Auto) 3.4 Eos % (Auto) 0.1 L Baso % (Auto) 0.2 Neut # (Auto) 06816 H Lymph # (Auto) 1900 [place] # (Auto) 500 Eos # (Auto) 0 Baso # (Auto) 0 ABG pH ABG pCO2 ABG pO2 ABG HCO3 ABG Total CO2 ABG O2 Saturation ABG Base Excess FiO2 Sodium 141 Potassium 4.1 Chloride 108 H Carbon Dioxide 25 BUN 10 Creatinine 0.63 L Estimated GFR > 60.0 BUN/Creatinine Ratio 15.9 Glucose 125 H Calcium 8.2 L Magnesium Total Bilirubin Conjugated Bilirubin Unconjugated Bilirubin AST ALT Alkaline Phosphatase Total Protein Albumin Globulin Albumin/Globulin Ratio Lipase Urine Color Urine Appearance Urine pH Ur Specific [place] Urine Protein Urine Glucose (UA) Urine Ketones Urine Occult Blood Urine Nitrate Urine Bilirubin Urine Urobilinogen Ur Leukocyte Esterase Urine RBC Urine WBC Urine Bacteria Ur Culture Indicated? Micro UA Comment Nasal Screen MRSA (PCR) U Opiates 300ng/mL cut Ur Oxycodone Screen Urine Methadone Screen Ur Barbiturates Screen U Tricyclic Antidepress Ur Phencyclidine Scrn Ur Amphetamines Screen U Methamphetamines Scrn Ur MDMA Scrn (Ecstasy) U Benzodiazepines Scrn Urine Cocaine Screen U Marijuana (THC) Screen Ethyl Alcohol SARS-CoV-2 (PCR) PFSH Medical History Alcohol abuse Surgical History (Updated 09/27/20 @ 03:38 by LIYAH Persaud) No significant past surgical history Social History household members: family Smoking Status: Never smoker Quality VTE Deep Vein Thrombosis/Pulmonary Embolism Present on Admission: No
--- NOTE | 2020-09-27 21:10 | PC.NURSE ---
Addendum entered by Morelia Richter R.N. 09/27/20 22:47: Current RASS score corrected not +4 but -4, pt resting comfortably, rouses to stimulation, quickly falls back to sleep. Mother at bedside, no further needs at this time, will continue to treat and monitor until report is given to oncoming [facility] shift nurse. Original Note: Evening shift note: Pt lightly sedated at the beginning of shift, was on Fentaynl and Versed for sedation with intubation and pt able to interact with staff and family, Able to follow commands, repeated attempts at removing ETT. Soft wrist restraints in place as ordered, CMS + ROM assessed. PIV x2 and PICC line placed to CARY. Tmax 99.6, concerns for possible aspiration after emesis. Current Vent settings 25% SIMV 16/5 with tidal vol. of 470; Propofol at 24.9 mg/hr- 50mcg/kg/hr; Fentanyl at 20.75mL/hr- 1mcg/kg/hr; Versed discontinued and Ativan 1mg prn Q4 hour. Mother at bedside, seems that pt is currently sedated, RASS +4. Bed low and locked, call light within reach. will continue to monitor.
[2020-09-27] MEDS: propofoL 1,000 MG/100 ML VIAL 24.9 MG IV (23:12)
[2020-09-28] VITALS (32 sets, daily range): BP systolic 111–141; BP diastolic 67–97; PULSE 101–125; RESP 0–24; TEMP 36.4–37.3; O2SAT 96–99
[2020-09-28] MEDS: propofoL 1,000 MG/100 ML VIAL 19.92 MG IV ×2 (03:17→07:46)
[2020-09-28] MEDS: fentaNYL 1,000 MCG in DEXTROSE 5% IN WATER 230 ML 20.75 ML IV (03:32)
[2020-09-28] MEDS: LORazepam 2 MG/ML INJ 1 MG IV (04:20)
--- NOTE | 2020-09-28 04:32 | PC.NURSE ---
Addendum entered by Marcela Riley R.N. 09/28/20 06:21: Pt moderately sedated. Mey pt mother at bedside. Pitts intact and draining lian urine. OG tube intact draining dark brown/red. Gerry PELLETIER notified and orders received to start pt on prophylactic. Original Note: Pt agitated, fidgeting in bed, alert, writing on paper asking if he is dying. HR increased to 120s. Propafol increased to 50 mcg/kg/hr with no change. 1mg Ativan PRN given as ordered. Pt now resting in bed. RASS Score of -3. WCTM
[2020-09-28 05:54] LABS: Add Manual Diff / Slide Review NO; Basophils Absolute Auto 0 /uL (0-100); Basophils Percent Auto 0.2 % (0-2); Eosinophils Absolute Auto 100 /uL (0-450); Eosinophils Percent Auto 0.6 % (2-4); Hemoglobin 13.3 g/dL (13.5-17.5); Lymphocytes Absolute Auto 2600 /uL (1100-4500); Lymphocytes Percent Auto 24.6 % (25-40); Mean Corpuscular Hemoglobin 30.2 PG (26-34); Mean Corpuscular Volume 88.9 fL (80-100); Monocytes Absolute Auto 1000 /uL (0-900); Neutrophils Absolute Auto 6700 /uL (1500-7000); Neutrophils Percent Auto 64.6 % (50-75); Platelet Count 207 X10^3/uL (150-400); Red Blood Cell Count 4.39 X10^6/uL (4.5-5.9); Red Cell Distribution Width 13.2 % (11.6-14.8); White Blood Cell Count 10.4 X10^3/uL (4.5-11.0)
[2020-09-28] MEDS: ONDANSETRON 4 MG/2 ML INJ IV ×2 (05:55→23:18)
[2020-09-28] MEDS: SODIUM CHLORIDE 0.9% 1,000 ML 125 ML IV ×3 (05:57→22:17)
[2020-09-28 06:15] LABS: Alanine Aminotransferase 36 IU/L (<50); Albumin 3.6 g/dL (3.5-5.0); Albumin Globulin Ratio 1.3 (1.0-2.8); Alkaline Phosphatase 62 U/L (38-126); Aspartate Aminotransferase 36 IU/L (17-59); BUN Creatinine Ratio 14.7 (6-22); Bilirubin Total 0.8 mg/dL (0.2-1.3); Bilirubin Unconjugated 0.8 mg/dL (0.0-1.1); Blood Urea Nitrogen 11 mg/dL (9-20); Calcium 8.6 mg/dL (8.4-10.2); Carbon Dioxide 27 mmol/L (22-32); Chloride 106 mmol/L (98-107); Estimated Glomerular Filt Rate > 60.0 mL/min (>60); Globulin 2.7 g/dL (1.7-4.1); Glucose 93 mg/dL (70-100); HEMOLYSIS < 15 (0-50); Magnesium 1.8 mg/dL (1.6-2.3); Potassium 3.4 mmol/L (3.4-5.1); Sodium 135 mmol/L (137-145); Total Protein 6.3 g/dL (6.3-8.2)
[2020-09-28] MEDS: PANTOPRAZOLE 40 MG VIAL IV (07:46)
[2020-09-28] MEDS: ENOXAPARIN 40 MG/0.4 ML SYRINGE SUBCUT (07:48)
[2020-09-28] MEDS: ACETAMINOPHEN 325 MG TABLET 650 MG PO ×3 (11:51→20:56)
--- NOTE | 2020-09-28 14:11 | PM.PN.1 ---
Subjective Subjective Date Patient Seen: 09/28/20 Interval history: Patient is 20-year-old male admitted with acute intoxication and unresponsiveness and was intubated to protect his airway. There was witnessed likely aspiration. He was kept on propofol and Ativan as needed overnight. We were able to extubate him this morning. He remains stable post extubation without respiratory distress. He complains of his throat hurting and trouble swallowing. Exam Vital Signs (past 8 hours): - 09/28/20 07:00 09/28/20 07:55 09/28/20 08:00 Temperature 99.1 F Pulse Rate 109 H 111 H Respiratory Rate 16 15 Blood Pressure 127/79 139/87 Pulse Oximetry 96 98 99 09/28/20 08:31 09/28/20 10:00 09/28/20 12:00 Temperature 98.9 F Pulse Rate 116 H 118 H Respiratory Rate 18 22 Blood Pressure 122/80 132/87 Pulse Oximetry 98 96 98 Fraction of Inspired Oxygen 30 Oxygen Delivery Method Aerosol Mask Oxygen Flow Rate 0 Narrative Exam Narrative: General: Alert and cooperative male seen before and after extubation Lungs: Clear to auscultation, no crackles or wheeze Heart: Regular rhythm Extremities: Warm, dry without edema Neurological: Mood/affect appropriate Objective Labs Result Diagrams: 09/28/20 04:38 09/28/20 04:38 Labs: Laboratory Results - last 24 hr 09/28/20 09/28/20 04:38 04:38 WBC 10.4 RBC 4.39 L Hgb 13.3 L Hct 39.0 L MCV 88.9 MCH 30.2 MCHC 34.0 RDW 13.2 Plt Count 207 Neut % (Auto) 64.6 Lymph % (Auto) 24.6 L [place] % (Auto) 10.0 Eos % (Auto) 0.6 L Baso % (Auto) 0.2 Neut # (Auto) 6700 Lymph # (Auto) 2600 [place] # (Auto) 1000 H Eos # (Auto) 100 Baso # (Auto) 0 Sodium 135 L Potassium 3.4 Chloride 106 Carbon Dioxide 27 BUN 11 Creatinine 0.75 Estimated GFR > 60.0 BUN/Creatinine Ratio 14.7 Glucose 93 Calcium 8.6 Magnesium 1.8 Total Bilirubin 0.8 Conjugated Bilirubin 0.0 Unconjugated Bilirubin 0.8 AST 36 ALT 36 Alkaline Phosphatase 62 Total Protein 6.3 Albumin 3.6 Globulin 2.7 Albumin/Globulin Ratio 1.3 [facility] Medical History Alcohol abuse Surgical History (Updated 09/27/20 @ 03:38 by LIYAH Persaud) No significant past surgical history Social History household members: family Smoking Status: Never smoker Assessment & Plan Assessment & Plan narrative: Patient is 20-year-old male admitted with acute intoxication and unresponsiveness and was intubated to protect his airway. There was witnessed likely aspiration. 1. Acute ETOH intoxication with unresponsiveness and behavioral changes. -patient intubated to protect airways after received ketamine in the field -post extubation, he is not showing signs of acute withdrawal -continue IV fluid, diet as tolerated -ETOH counseling provided, he works during the week and binge drinks on weekends -social work consult 2. Acute aspiration secondary to EtOH intoxication -patient without fever, cough or lung exam findings to suggest aspiration pneumonia -continue monitoring respiratory status Continue acute inpatient care. Likely able to send home tomorrow. Quality VTE Deep Vein Thrombosis/Pulmonary Embolism Present on Admission: No
--- NOTE | 2020-09-28 14:24 | PC.NURSE ---
Day Shift Note Pt intubated on mechanical ventilator on AM assessment, initially sedated to RASS of -3 while on propofol 40 mcg/kg/min and fentanyl 1 mcg/kg/hr. Propofol and fentanyl turned off at 0755 for sedation vacation. Mildly anxious but able to follow instructions and participate in CPAP trial which was initiated by RT at approx. 0805. White creamy secretions suctioned via ET tube, oral suctioning also performed as needed. Maintained SpO2 greater than 96% while on CPAP, RR in the 12-20 bpm range, pulling good volumes. Lungs clear bilaterally. MD at bedside and order received to extubate. Pt extubated to aerosol mask by RT (FiO2 30%) at 0831. OG tube pulled at this time. Restraints to bilateral wrists discontinued. Pt reports pain to throat but otherwise denies. Pt weaned to RA at 1000 with SpO2 96-98%. Pitts catheter d/c'd without issue. Pt took shower, SBA. Currently sitting up in chair. CIWA 2. Call light within reach, using appropriately to make needs known.
[2020-09-28] MEDS: BENZOCAINE/MENTHOL 1 LOZ PKT 1 EACH PO (23:18)
[2020-09-28] MEDS: IBUPROFEN 600 MG TABLET PO (23:18)
[2020-09-29 05:00] VITALS: BP 104/59; PULSE 99; RESP 16; TEMP 36.3; O2SAT 97
[2020-09-29] MEDS: BENZOCAINE/MENTHOL 1 LOZ PKT 1 EACH PO ×2 (05:10→09:24)
[2020-09-29 05:37] LABS: Add Manual Diff / Slide Review NO; Basophils Absolute Auto 0 /uL (0-100); Basophils Percent Auto 0.2 % (0-2); Eosinophils Absolute Auto 200 /uL (0-450); Hematocrit 39.7 % (41-53); Hemoglobin 13.4 g/dL (13.5-17.5); Lymphocytes Absolute Auto 2500 /uL (1100-4500); Lymphocytes Percent Auto 22.2 % (25-40); Mean Corpuscular HGB Conc 33.8 % (30-36); Mean Corpuscular Hemoglobin 29.9 PG (26-34); Mean Corpuscular Volume 88.4 fL (80-100); Monocytes Absolute Auto 900 /uL (0-900); Monocytes Percent Auto 8.2 % (3-14); Neutrophils Absolute Auto 7500 /uL (1500-7000); Neutrophils Percent Auto 67.4 % (50-75); Platelet Count 207 X10^3/uL (150-400); Red Blood Cell Count 4.49 X10^6/uL (4.5-5.9); Red Cell Distribution Width 13.1 % (11.6-14.8); White Blood Cell Count 11.2 X10^3/uL (4.5-11.0)
[2020-09-29 05:57] LABS: Alanine Aminotransferase 31 IU/L (<50); Albumin 3.9 g/dL (3.5-5.0); Albumin Globulin Ratio 1.4 (1.0-2.8); Alkaline Phosphatase 64 U/L (38-126); Aspartate Aminotransferase 30 IU/L (17-59); BUN Creatinine Ratio 11.3 (6-22); Bilirubin Unconjugated 1.1 mg/dL (0.0-1.1); Blood Urea Nitrogen 7 mg/dL (9-20); Calcium 8.8 mg/dL (8.4-10.2); Carbon Dioxide 27 mmol/L (22-32); Chloride 107 mmol/L (98-107); Estimated Glomerular Filt Rate > 60.0 mL/min (>60); Globulin 2.8 g/dL (1.7-4.1); Glucose 101 mg/dL (70-100); HEMOLYSIS < 15 (0-50); Magnesium 2.2 mg/dL (1.6-2.3); Potassium 3.6 mmol/L (3.4-5.1); Sodium 140 mmol/L (137-145); Total Protein 6.7 g/dL (6.3-8.2)
[2020-09-29] MEDS: SODIUM CHLORIDE 0.9% 1,000 ML 125 ML IV (06:01)
[2020-09-29] MEDS: ACETAMINOPHEN 325 MG TABLET 650 MG PO (06:22)
--- NOTE | 2020-09-29 06:34 | PC.NURSE ---
Shift Note-Patient is drowsy, oriented x4, flat affect, cooperative. Has persistent cough with white sputum, using sx on own. C/O sore throat, medicated with Tylenol, ibuprofen x1 dose, Cepacol lozenges. SR/ST w/ BBB, afebrile, SpO2 >95% RA.
[2020-09-29 07:12] VITALS: O2SAT 99
[2020-09-29 08:31] VITALS: BP 106/65; PULSE 71; RESP 14; TEMP 36.7; O2SAT 97
[2020-09-29] MEDS: PANTOPRAZOLE 40 MG VIAL IV (09:24)
[2020-09-29] MEDS: ENOXAPARIN 40 MG/0.4 ML SYRINGE SUBCUT (09:24)
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
--- NOTE | 2020-09-29 20:50 | PM.DS.1 ---
History of Present Illness History of Present Illness Chief complaint: ETOH Narrative: Mr. Scott Burkett is a 20-year-old male with a past medical history significant only for alcohol abuse who was brought to the ER by EMS with acute intoxication. The patient at the time of evaluation is intubated, sedated and unresponsive and past medical history and this evening's events of are obtained from the patient's mother at bedside. The patient is adopted and lives at home with his adoptive parents. At dinner he told his mother that he was going to go up to his room drink which is done on previous occasions. He states she has talked previously about moderation or drinking. The last time she has all the patient wakened behaving normally was at 10:30 p.m.. She was going to bed this evening between 11 30 and midnight for times when passed his room and was ?too quiet? and found him in his chair unresponsive with shallow breathing. Per the patient's mother the patient consumes between 1-2/5 of whiskey tonight. EMS was activated the patient moved to the floor. Upon arrival of EMS the patient was becoming more responsive with unintelligible speech and was reportedly ambulating moving all extremities and becoming belligerent and combative. With concerns for patient as well as paramedics safety the patient received ketamine 300 mg and was transported to the ER. Per the patient's mother he has had no recent illness flu or cold symptoms and no reported COVID-19 exposures. He is otherwise good health no complaints of chest pain is had no shortness of breath or cough. He has not reported abdominal pain and has had no nausea vomiting. She is unaware of any urinary problems, diarrhea or constipation. Upon arrival to the ER the patient has a temperature of 97.4?, heart rate 124, blood pressure 130/91, respirations 20 saturating 99%. While in the ER the patient quickly decompensated becoming apneic. Per the ER provider an LMA was placed and the patient ventilated effectively however did have emesis. The LMA was changed to an endotracheal tube the patient was intubated with additional ketamine 85 mg and rocuronium 85 mg using an 8.5 ET tube secured at 23 cm at the teeth. Chest x-ray was subsequently taken which shows the ET tube to be in adequate position. Arterial blood gas obtained which shows a pH of 7.38, pCO2 of 40.7, PO2 of 297, bicarb of 24 with a base excess of minus on 100% FiO2. On laboratory analysis patient has a white count of 8.1, hemoglobin 14.4, hematocrit 43.4 and platelets 223. His chemistries are notable for hypokalemia at 3.1, BUN of 12 and creatinine 0.6 and blood sugar of 123. His total bilirubin is 0.2 with an AST 42 ALT of 49 and alkaline phosphatase of 58. His lipase is 83. Magnesium is 2.1 calcium is low at 8.1. Urine tox screen is negative except for alcohol level of 292. In the ER and OG tube is placed and 40 mg of Protonix is administered. The patient is admitted to the hospitalist service for acute intoxication and respiratory failure on ventilatory support. Discharge Providers Provider Date of admission: 09/27/20 02:24 Discharge Date: 09/29/20 Primary care physician: Blanca Lazcano DO Consults: 09/27/20 02:26 Consult to Discharge Planning Routine Comment: 09/27/20 02:27 Consult to Dietitian, Adult Routine Comment: Reason For Exam: Patient on Ventilator and NPO 09/27/20 04:01 Consult to GRINDER SET UP OPERATOR SURFACE - Systems Spec Routine Comment: Needs alcohol rehab program GR[employer] UP OPERATOR SURFACE Consult: [facility] Res Need Discharge provider: Qamar Sheridan MD Summary Hospital Course Discharge Diagnosis: 1. Acute hypoxic respiratory failure secondary to ketamine and alcohol intoxication 2. ETOH abuse 3. Likely aspiration of stomach contents without aspiration pneumonia As noted patient was intubated in the ED due to drop in O2 sats associated with for unresponsiveness from alcohol and ketamine he received in the field. He was successfully extubated following morning. There was concern about aspiration but he remained afebrile without development of cough or other signs of aspiration pneumonia. He was provided counseling on alcohol cessation and provided resources by social work for outpatient alcohol counseling. Status at Discharge Cognitive/behavioral status at discharge: oriented Functional status at discharge: independent ambulation Overall status at discharge: patient is progressing back to baseline Time Spent with Patient Time spent: Less than 30 minutes Exam Vital Signs (past 8 hours): Fraction of Inspired Oxygen 30 Oxygen Delivery Method Room Air Oxygen Flow Rate 0 Objective Labs Result Diagrams: 09/29/20 05:15 09/29/20 05:15 Labs: Laboratory Results - last 24 hr 09/29/20 09/29/20 05:15 05:15 WBC 11.2 H RBC 4.49 L Hgb 13.4 L Hct 39.7 L MCV 88.4 MCH 29.9 MCHC 33.8 RDW 13.1 Plt Count 207 Neut % (Auto) 67.4 Lymph % (Auto) 22.2 L Gregg % (Auto) 8.2 Eos % (Auto) 2.0 Baso % (Auto) 0.2 Neut # (Auto) 7500 H Lymph # (Auto) 2500 Gregg # (Auto) 900 Eos # (Auto) 200 Baso # (Auto) 0 Sodium 140 Potassium 3.6 Chloride 107 Carbon Dioxide 27 BUN 7 L Creatinine 0.62 L Estimated GFR > 60.0 BUN/Creatinine Ratio 11.3 Glucose 101 H Calcium 8.8 Magnesium 2.2 Total Bilirubin 1.0 Conjugated Bilirubin 0.0 Unconjugated Bilirubin 1.1 AST 30 ALT 31 Alkaline Phosphatase 64 Total Protein 6.7 Albumin 3.9 Globulin 2.8 Albumin/Globulin Ratio 1.4 PFSH Medical History Alcohol abuse Surgical History (Updated 09/27/20 @ 03:38 by LIYAH Persaud) No significant past surgical history Social History household members: family Smoking Status: Never smoker Discharge Plan Discharge Plan Patient Disposition: Home Discharge orders & Medications Prescriptions: No Action No Known Home Medications RF: 0 Follow up/Referrals: Blanca Lazcano DO [Primary Care Provider] - Diet/Activity/Treatments Diet: Regular Visit Report/Discharge Packet Instructions: DI for Alcohol Use Disorder, DI for Intubation Without Tracheostomy, DI for Alcohol Poisoning Discharge Data Primary Care Provider: Blanca Lazcano Quality VTE Deep Vein Thrombosis/Pulmonary Embolism Present on Admission: No
== END 2020-09-29 12:30 | disposition home or self-care (01) | DRG 133 ==
LOC: ED 01:51 → AC 02:35 → ICU 07:52 → AC 09-28 07:49 → ICU 09-28 07:49
PROVIDERS: Internal Medicine; Admitting Provider Nurse Practitioner Adult Health; Emergency Provider Emergency Medicine; PCP Family Medicine; Referring Provider Emergency Medicine; Visit Provider Nurse Practitioner Adult Health
DX: J96.00 Acute respiratory failure, unspecified whether with hypoxia or hypercapnia (principal); F10.129 Alcohol abuse with intoxication, unspecified; Y90.8 Blood alcohol level of 240 mg/100 ml or more; R00.0 Tachycardia, unspecified; T41.295A Adverse effect of other general anesthetics, initial encounter; F17.210 Nicotine dependence, cigarettes, uncomplicated; T17.918A Gastric contents in respiratory tract, part unspecified causing other injury, initial encounter; Z20.822 Contact with and (suspected) exposure to COVID-19
CPT/HCPCS: 36415; 36569; 36592; 36600; 71045; 80048; 80053; 80076; 80305; 80320; 81001; 82805; 82962; 83690; 83735; 85025; 87635; 87797; 94002; 94003; 94010; 94762; 94770; 94799; 96374; 96375; 99283; 99285; 99291; 99292; C9803; C9113; J1642; J1650; J2060; J2250; J2405; J2704; J3010; J3480

== ENCOUNTER → 2021-02-25 14:26 | Outpatient (CLI) | payer OTHER, MEDICAID, SELFPAY ==
[2020-09-27 02:37] VITALS: BMI 29.5
[2020-09-28 07:20] VITALS: PULSE 101; RESP 0; RESP 16; O2SAT 98
[2021-02-25 15:25] LABS: Add Manual Diff / Slide Review NO; Basophils Absolute Auto 0 /uL (0-100); Basophils Percent Auto 0.5 % (0-2); Eosinophils Absolute Auto 100 /uL (0-450); Eosinophils Percent Auto 0.8 % (2-4); Hematocrit 44.3 % (41-53); Hemoglobin 15.2 g/dL (13.5-17.5); Lymphocytes Absolute Auto 2500 /uL (1100-4500); Lymphocytes Percent Auto 27.6 % (25-40); Mean Corpuscular HGB Conc 34.2 % (30-36); Mean Corpuscular Hemoglobin 30.3 PG (26-34); Mean Corpuscular Volume 88.5 fL (80-100); Monocytes Absolute Auto 600 /uL (0-900); Monocytes Percent Auto 6.2 % (3-14); Neutrophils Absolute Auto 5800 /uL (1500-7000); Neutrophils Percent Auto 64.9 % (50-75); Platelet Count 242 X10^3/uL (150-400); Red Blood Cell Count 5.01 X10^6/uL (4.5-5.9); Red Cell Distribution Width 13.2 % (11.6-14.8); White Blood Cell Count 8.9 X10^3/uL (4.5-11.0)
[2021-02-25 15:30] LABS: Ur Creatinine Normal (Normal); Ur Specific Gravity Normal (Normal); Urine pH Normal (Normal)
[2021-02-25 15:31] LABS: UR Morphine/Opiate cutoff 300 Negative (Negative); Urine Amphetamines Negative (Negative); Urine Barbiturates Negative (Negative); Urine Benzodiazepines Negative (Negative); Urine Cocaine Negative (Negative); Urine MDMA Negative (Negative); Urine Methadone Negative (Negative); Urine Methamphetamines Negative (Negative); Urine Oxycodone Negative (Negative); Urine Phencyclidine Negative (Negative); Urine Tetrahydrocannabinol Negative (Negative); Urine Tricyclic Antidepressant Negative (Negative)
[2021-02-25 15:55] LABS: Alanine Aminotransferase 38 IU/L (<50); Albumin 4.9 g/dL (3.5-5.0); Albumin Globulin Ratio 1.4 (1.0-2.8); Alkaline Phosphatase 67 U/L (38-126); Aspartate Aminotransferase 35 IU/L (17-59); Bilirubin Total 0.5 mg/dL (0.2-1.3); Blood Urea Nitrogen 12 mg/dL (9-20); Calcium 9.9 mg/dL (8.4-10.2); Carbon Dioxide 28 mmol/L (22-32); Chloride 102 mmol/L (98-107); Globulin 3.4 g/dL (1.7-4.1); HEMOLYSIS < 15 (0-50); Sodium 141 mmol/L (137-145); Total Protein 8.3 g/dL (6.3-8.2)
[2021-02-25 16:11] LABS: BUN Creatinine Ratio 15.4 (6-22); Estimated Glomerular Filt Rate > 60.0 mL/min (>60); Glucose 97 mg/dL (70-100); Potassium 4.5 mmol/L (3.4-5.1)
[2021-02-25 16:38] LABS: Free T4, Direct Thyroxine 1.18 ng/dL (0.78-2.19)
[2021-02-25 16:52] LABS: Thyroid Stimulating Hormone 2.18 uIU/mL (0.47-4.68)
== END ==
PROVIDERS: PCP Registered Nurse; Referring Provider Registered Nurse; Visit Provider Registered Nurse
DX: D64.9 Anemia, unspecified (principal); F19.10 Other psychoactive substance abuse, uncomplicated; F41.8 Other specified anxiety disorders
CPT/HCPCS: 36415; 80053; 80305; 84439; 84443; 85025

== ENCOUNTER → 2021-04-14 08:48 | Outpatient (CLI) | payer OTHER, MEDICAID, SELFPAY ==
[2020-09-27 02:37] VITALS: BMI 29.5
[2020-09-28 07:20] VITALS: PULSE 101; RESP 0; RESP 16; O2SAT 98
[2021-04-14 11:01] LABS: COVID19 -Nasal RAPID Negative (Negative)
== END ==
PROVIDERS: PCP Registered Nurse; Visit Provider Physician Assistant
DX: R05 Cough (principal); Z20.822 Contact with and (suspected) exposure to COVID-19
CPT/HCPCS: 87635

== ENCOUNTER → 2021-10-21 15:29 | Outpatient (CLI) | payer OTHER, MEDICAID, SELFPAY ==
[2020-09-27 02:37] VITALS: BMI 29.5
[2020-09-28 07:20] VITALS: PULSE 101; RESP 0; RESP 16; O2SAT 98
[2021-10-21 18:04] LABS: Alanine Aminotransferase 55 IU/L (<50); Albumin 4.5 g/dL (3.5-5.0); Albumin Globulin Ratio 1.6 (1.0-2.8); Alkaline Phosphatase 69 U/L (38-126); Aspartate Aminotransferase 39 IU/L (17-59); BUN Creatinine Ratio 21.6 (6-22); Bilirubin Total 0.5 mg/dL (0.2-1.3); Blood Urea Nitrogen 16 mg/dL (9-20); Calcium 9.7 mg/dL (8.4-10.2); Carbon Dioxide 29 mmol/L (22-32); Chloride 104 mmol/L (98-107); Estimated Glomerular Filt Rate > 60.0 mL/min (>60); Globulin 2.8 g/dL (1.7-4.1); Glucose 89 mg/dL (70-100); HEMOLYSIS < 15 (0-50); Sodium 139 mmol/L (137-145); Total Protein 7.3 g/dL (6.3-8.2)
== END ==
PROVIDERS: PCP Registered Nurse; Referring Provider Registered Nurse; Visit Provider Registered Nurse
DX: F41.8 Other specified anxiety disorders (principal)
CPT/HCPCS: 36415; 80053

== ENCOUNTER → 2022-07-03 14:57 | Outpatient (CLI) | payer OTHER, MEDICAID, SELFPAY ==
[2020-09-27 02:37] VITALS: BMI 29.5
[2020-09-28 07:20] VITALS: PULSE 101; RESP 0; RESP 16; O2SAT 98
[2022-07-06 12:46] LABS: Urine N gonorrhoeae NOT DETECTED
[2022-07-06 12:57] LABS: Urine Chlamydia NOT DETECTED
== END ==
PROVIDERS: PCP Registered Nurse; Visit Provider Nurse Practitioner Family
DX: R30.0 Dysuria (principal)
CPT/HCPCS: 81002; 87086; 87491; 87591